=== PATIENT | female | born 1985 | race American Indian/Alaskan Native ===

== ENCOUNTER 2021-11-17 09:27 | Outpatient (CLI) | payer OTHER ==
--- NOTE | 2021-11-17 11:45 | XRay Report ---
Lumbar spine 3 views INDICATION: Pain FINDINGS: Alignment appears normal. The no loss of vertebral body height. Sacrum and sacroiliac joint s appear normal. No acute fracture. Signer Name: Royal Randolph MD Signed: 11/17/2021 11:41 AM Workstation Name: [id number]
== END 2021-11-17 09:28 | disposition home or self-care (01) ==
LOC: XRAY 09:27
PROVIDERS: ATTEND Internal Medicine
DX: Z02.71 Encounter for disability determination (principal)
CPT/HCPCS: 72100